=== PATIENT | female | born 1935 | race Caucasian/White ===

== ENCOUNTER 2021-11-16 06:39 | Inpatient (IN) | payer MEDICARE ==
[2021-11-16 12:40] VITALS: BMI 41.1
[2021-11-16] MEDS ORDERED: Guaifenesin DM 100-10/5 ML UDCUP PO PRN (18:12)
[2021-11-16] MEDS ORDERED: Ondansetron PF 4 MG/2 ML Vial IVP PRN (18:12)
[2021-11-16] MEDS ORDERED: Senokot S 8.6-50 MG TAB PO PRN (18:12)
[2021-11-16] MEDS ORDERED: Bisacodyl 5 MG TAB PO PRN (18:12)
[2021-11-16] MEDS ORDERED: Enoxaparin Sodium 40 MG/0.4 ML SYRINGE SC SCH (18:15)
[2021-11-16] MEDS ORDERED: Benzonatate 100 MG CAP PO PRN (18:19)
[2021-11-16] MEDS ORDERED: hydrALAZINE 20 MG/ML VIAL SLOW IVP PRN (18:19)
[2021-11-16] MEDS ORDERED: Losartan/Hydrochlorothiazide 100 mg/25 mg Tablet PO SCH (18:45)
[2021-11-16] MEDS ORDERED: Amlodipine 5 MG TAB PO SCH (18:45)
[2021-11-16] MEDS ORDERED: cloNIDine 0.3 MG TAB PO SCH (18:45)
[2021-11-17] MEDS: cefTRIAXone\\ROCEPHIN 2 GM in Sodium Chloride 0.9% 100 ML IVPB SCH (03:46)
[2021-11-17] MEDS: Azithromycin 500 MG in Sodium Chloride 0.9% 250 ML 250 ML IVPB SCH (03:51)
[2021-11-17 05:14] LABS: #Lymphocytes 1.4 thou/uL (1.20-3.40); #Neutrophils 11.3 thou/uL (1.40-6.50); %Basophils 0.1 % (0.0-1.0); %Eosinophils 0.1 % (0.0-10.0); %Lymphocytes 10.2 % (21.0-51.0); %Monocytes 7.5 % (0.0-10.0); %Neutrophils 82.2 % (42.0-75.0); Hemoglobin 11.9 g/dL (12.0-16.0); Mean Corpuscular HGB CONC 33.3 g/dL (32.0-36.0); Mean Corpuscular Hemoglobin 32.5 pg (27.0-31.0); Mean Corpuscular Volume 97.7 fL (78.0-98.0); Mean Platelet Volume 6.7 fL (7.4-10.4); Platelet Count 271 thou/uL (130-400); RBC Distribution Width 12.3 % (11.5-14.5); Red Blood Cell (RBC) Count 3.65 mill/uL (4.20-5.40); White Blood Cell (WBC) Count 13.8 thou/uL (4.8-10.8)
[2021-11-17 05:19] LABS: Hemoglobin A1c 5.9 % (4.0-6.0)
[2021-11-17 05:21] LABS: Lactic Acid 2.4 mmol/L (0.5-2.2)
[2021-11-17 05:34] LABS: ALT (SGPT) Less than 7 U/L (8-55); AST (SGOT) 8 U/L (5-34); Albumin 3.3 g/dL (3.4-4.8); Alkaline Phosphatase 88 U/L (40-110); Anion Gap 16 mmol/L (10-20); BUN (Urea Nitrogen) 16 mg/dL (9.8-20.1); Bilirubin, Total Less than 0.2 mg/dL (0.2-1.2); Calc. Creatinine Clearance 101 mL/min (70-130); Calcium 9.6 mg/dL (7.8-10.44); Carbon Dioxide 29 mmol/L (23-31); Chloride 100 mmol/L (98-107); Globulin 3.9 g/dL (2.4-3.5); Glucose 148 mg/dL (83-110); Potassium 3.6 mmol/L (3.5-5.1); Protein, Total 7.2 g/dL (5.8-8.1); Sodium 141 mmol/L (136-145)
[2021-11-17] MEDS: Amlodipine 5 MG TAB PO SCH (08:27)
[2021-11-17] MEDS: Enoxaparin Sodium 40 MG/0.4 ML SYRINGE SC SCH (08:27)
[2021-11-17] MEDS: Losartan/Hydrochlorothiazide 100 mg/25 mg Tablet PO SCH (08:27)
[2021-11-17] MEDS ORDERED: cloNIDine 0.3 MG TAB PO SCH (09:00)
[2021-11-17] MEDS ORDERED: cloNIDine 0.1 MG TAB PO PRN (11:42)
[2021-11-17 14:18] LABS: Legionella Urinary Ag Negative (Negative); Strep pneumo Urine Ag NEGATIVE (NEGATIVE)
[2021-11-17] MEDS: guaiFENesin ER 600 MG TAB PO SCH (20:23)
[2021-11-17] MEDS: Saccharomyces boulardii 250 MG CAP PO SCH (20:23)
[2021-11-17] MEDS: Acetaminophen 325 MG TAB PO PRN (23:16)
[2021-11-18] MEDS: cefTRIAXone\\ROCEPHIN 2 GM in Sodium Chloride 0.9% 100 ML IVPB SCH (03:31)
[2021-11-18] MEDS: Azithromycin 500 MG in Sodium Chloride 0.9% 250 ML 250 ML IVPB SCH (03:34)
[2021-11-18 06:47] LABS: #Eosinphils 0.2 thou/uL (0.0-0.7); #Lymphocytes 2.1 thou/uL (1.20-3.40); #Monocytes 0.9 thou/uL (0.11-0.59); #Neutrophils 7.9 thou/uL (1.40-6.50); %Basophils 0.1 % (0.0-1.0); %Eosinophils 1.4 % (0.0-10.0); %Lymphocytes 18.6 % (21.0-51.0); %Monocytes 8.5 % (0.0-10.0); %Neutrophils 71.4 % (42.0-75.0); Hemoglobin 12.9 g/dL (12.0-16.0); Mean Corpuscular HGB CONC 30.8 g/dL (32.0-36.0); Mean Corpuscular Hemoglobin 29.7 pg (27.0-31.0); Mean Corpuscular Volume 96.3 fL (78.0-98.0); Platelet Count 286 thou/uL (130-400); RBC Distribution Width 12.4 % (11.5-14.5); Red Blood Cell (RBC) Count 4.34 mill/uL (4.20-5.40)
[2021-11-18 06:59] LABS: Lactic Acid 1.7 mmol/L (0.5-2.2)
[2021-11-18 07:04] LABS: ALT (SGPT) 7 U/L (8-55); AST (SGOT) 9 U/L (5-34); Albumin 3.4 g/dL (3.4-4.8); Alkaline Phosphatase 92 U/L (40-110); Anion Gap 13 mmol/L (10-20); BUN (Urea Nitrogen) 17 mg/dL (9.8-20.1); Bilirubin, Total 0.2 mg/dL (0.2-1.2); Calc. Creatinine Clearance 104 mL/min (70-130); Calcium 9.5 mg/dL (7.8-10.44); Carbon Dioxide 35 mmol/L (23-31); Chloride 96 mmol/L (98-107); Globulin 3.8 g/dL (2.4-3.5); Glucose 105 mg/dL (83-110); Magnesium 1.8 mg/dL (1.6-2.6); Phosphorus 3.7 mg/dL (2.3-4.7); Potassium 3.6 mmol/L (3.5-5.1); Protein, Total 7.2 g/dL (5.8-8.1); Sodium 140 mmol/L (136-145)
[2021-11-18] MEDS: guaiFENesin ER 600 MG TAB PO SCH ×2 (08:52→20:16)
[2021-11-18] MEDS: Losartan/Hydrochlorothiazide 100 mg/25 mg Tablet PO SCH (08:52)
[2021-11-18] MEDS: Enoxaparin Sodium 40 MG/0.4 ML SYRINGE SC SCH (08:53)
[2021-11-18] MEDS: Amlodipine 5 MG TAB PO SCH (08:53)
[2021-11-18] MEDS: Acetaminophen 325 MG TAB PO PRN ×2 (10:15→20:16)
[2021-11-18] MEDS: Saccharomyces boulardii 250 MG CAP PO SCH (20:16)
[2021-11-18] MEDS: cloNIDine 0.3 MG TAB PO SCH (20:16)
[2021-11-18] MEDS: Melatonin 3 MG TAB PO PRN (21:10)
[2021-11-18] MEDS ORDERED: Magnesium 2 GM/50 ML 2 GM in Premix Bag 1 BAG IVPB SCH (23:45)
[2021-11-19] MEDS: cefTRIAXone\\ROCEPHIN 2 GM in Sodium Chloride 0.9% 100 ML IVPB SCH (03:03)
[2021-11-19] MEDS: Azithromycin 500 MG in Sodium Chloride 0.9% 250 ML 250 ML IVPB SCH (04:31)
[2021-11-19 06:02] LABS: #Eosinphils 0.2 thou/uL (0.0-0.7); #Lymphocytes 1.9 thou/uL (1.20-3.40); #Monocytes 0.7 thou/uL (0.11-0.59); #Neutrophils 5.5 thou/uL (1.40-6.50); %Basophils 0.1 % (0.0-1.0); %Eosinophils 2.4 % (0.0-10.0); %Lymphocytes 23.4 % (21.0-51.0); %Neutrophils 66.2 % (42.0-75.0); Hemoglobin 12.6 g/dL (12.0-16.0); Mean Corpuscular HGB CONC 31.5 g/dL (32.0-36.0); Mean Corpuscular Hemoglobin 30.5 pg (27.0-31.0); Mean Corpuscular Volume 96.9 fL (78.0-98.0); Mean Platelet Volume 6.7 fL (7.4-10.4); Platelet Count 276 thou/uL (130-400); RBC Distribution Width 12.3 % (11.5-14.5); Red Blood Cell (RBC) Count 4.12 mill/uL (4.20-5.40); White Blood Cell (WBC) Count 8.3 thou/uL (4.8-10.8)
[2021-11-19 06:21] LABS: Anion Gap 12 mmol/L (10-20); BUN (Urea Nitrogen) 13 mg/dL (9.8-20.1); Calc. Creatinine Clearance 116 mL/min (70-130); Calcium 9.4 mg/dL (7.8-10.44); Carbon Dioxide 33 mmol/L (23-31); Chloride 96 mmol/L (98-107); Glucose 118 mg/dL (83-110); Potassium 3.4 mmol/L (3.5-5.1); Sodium 138 mmol/L (136-145)
[2021-11-19] MEDS: Losartan/Hydrochlorothiazide 100 mg/25 mg Tablet PO SCH (07:41)
[2021-11-19] MEDS: guaiFENesin ER 600 MG TAB PO SCH ×2 (07:41→21:07)
[2021-11-19] MEDS: Enoxaparin Sodium 40 MG/0.4 ML SYRINGE SC SCH (07:41)
[2021-11-19] MEDS: Amlodipine 5 MG TAB PO SCH (07:41)
[2021-11-19] MEDS ORDERED: Potassium Chloride 20 MEQ TAB PO SCH (08:00)
[2021-11-19] MEDS: Acetaminophen 325 MG TAB PO PRN ×2 (16:43→21:05)
[2021-11-19] MEDS: cloNIDine 0.3 MG TAB PO SCH (21:03)
[2021-11-19] MEDS: Melatonin 3 MG TAB PO PRN (21:05)
[2021-11-19] MEDS: Saccharomyces boulardii 250 MG CAP PO SCH (21:06)
[2021-11-20] MEDS: cefTRIAXone\\ROCEPHIN 2 GM in Sodium Chloride 0.9% 100 ML IVPB SCH (04:00)
[2021-11-20] MEDS: Azithromycin 500 MG in Sodium Chloride 0.9% 250 ML 250 ML IVPB SCH (04:35)
[2021-11-20 06:33] LABS: #Eosinphils 0.3 thou/uL (0.0-0.7); #Lymphocytes 2.3 thou/uL (1.20-3.40); #Monocytes 0.6 thou/uL (0.11-0.59); #Neutrophils 6.2 thou/uL (1.40-6.50); %Basophils 0.3 % (0.0-1.0); %Eosinophils 3.4 % (0.0-10.0); %Monocytes 6.7 % (0.0-10.0); %Neutrophils 65.6 % (42.0-75.0); Mean Corpuscular HGB CONC 31.3 g/dL (32.0-36.0); Mean Corpuscular Hemoglobin 30.8 pg (27.0-31.0); Mean Corpuscular Volume 98.3 fL (78.0-98.0); Mean Platelet Volume 6.8 fL (7.4-10.4); Platelet Count 279 thou/uL (130-400); RBC Distribution Width 12.4 % (11.5-14.5); Red Blood Cell (RBC) Count 4.24 mill/uL (4.20-5.40); White Blood Cell (WBC) Count 9.5 thou/uL (4.8-10.8)
[2021-11-20 06:51] LABS: Anion Gap 15 mmol/L (10-20); BUN (Urea Nitrogen) 16 mg/dL (9.8-20.1); Calc. Creatinine Clearance 107 mL/min (70-130); Calcium 9.4 mg/dL (7.8-10.44); Carbon Dioxide 30 mmol/L (23-31); Chloride 98 mmol/L (98-107); Glucose 115 mg/dL (83-110); Phosphorus 3.5 mg/dL (2.3-4.7); Sodium 139 mmol/L (136-145)
[2021-11-20 07:00] VITALS: TEMP 97.7
[2021-11-20] MEDS: Losartan/Hydrochlorothiazide 100 mg/25 mg Tablet PO SCH (07:43)
[2021-11-20] MEDS: Amlodipine 5 MG TAB PO SCH (07:43)
[2021-11-20] MEDS: guaiFENesin ER 600 MG TAB PO SCH (07:44)
[2021-11-20] MEDS: Enoxaparin Sodium 40 MG/0.4 ML SYRINGE SC SCH (07:44)
[2021-11-20 09:08] VITALS: BP 126/75
[2021-11-20] MEDS: Acetaminophen 325 MG TAB PO PRN (09:10)
== END 2021-11-20 14:18 | disposition home or self-care (01) | DRG 193 ==
LOC: T4-B 06:39 → INTOOBSV 18:22 → OBSVTOIN 18:22
PROVIDERS: ADMIT Student in an Organized Health Care Education/Training Program; ATTEND Family Medicine
DX: J18.9 Pneumonia, unspecified organism (principal); J96.01 Acute respiratory failure with hypoxia; I50.32 Chronic diastolic (congestive) heart failure; Z68.41 Body mass index [BMI] 40.0-44.9, adult; I28.1 Aneurysm of pulmonary artery; E66.01 Morbid (severe) obesity due to excess calories; I11.0 Hypertensive heart disease with heart failure; M19.90 Unspecified osteoarthritis, unspecified site; R73.9 Hyperglycemia, unspecified; E83.42 Hypomagnesemia; Z79.899 Other long term (current) drug therapy
CPT/HCPCS: 36415; 36416; 51798; 80048; 80053; 83036; 83605; 83735; 84100; 84145; 85025; 87449; 87899; 93306; 94640; 96372; 96374; 96375; 96376; G0378; J0360; J0456; J0696; J1650; J3475; J3490; J7050; J7620

== ENCOUNTER 2024-03-11 11:29 | Emergency (ER) | payer MEDICARE ==
[2024-03-11] MEDS ORDERED: HYDROcodone/Acetaminophen 5/325 mg Tablet ONE (12:22)
== END 2024-03-11 15:40 | disposition home or self-care (01) ==
LOC: ERS 11:29
DX: S76.911A Strain of unspecified muscles, fascia and tendons at thigh level, right thigh, initial encounter (principal); I10 Essential (primary) hypertension; X50.0XXA Overexertion from strenuous movement or load, initial encounter; Y93.89 Activity, other specified
CPT/HCPCS: 72170

== ENCOUNTER 2025-07-30 15:01 | Emergency (ER) | payer OTHER | END 2025-07-30 18:57 | disposition home or self-care (01) | LOC: ERS 15:01 | DX: R60.0 Localized edema (principal); I10 Essential (primary) hypertension; Z76.0 Encounter for issue of repeat prescription; Z79.82 Long term (current) use of aspirin; Z79.02 Long term (current) use of antithrombotics/antiplatelets; Z79.899 Other long term (current) drug therapy | CPT/HCPCS: 93970 ==

== ENCOUNTER 2025-08-12 18:09 | Inpatient (IN) | payer OTHER ==
[2025-08-12 21:28] VITALS: BMI 42.0
[2025-08-12] MEDS: predniSONE 20 MG TAB PO SCH (22:49)
[2025-08-12] MEDS: Enoxaparin 40 MG (0.4 mL) SYRINGE SC SCH (22:50)
[2025-08-12 22:52] LABS: Actual Bicarbonate (HCO3a) 35.5 mEq/L (22-28); Base Excess (BEa) 9.4 mEq/L (-2.0 to +3.0); CO2 Tension 55.2 mmHg (35.0-45.0); Calcium, Ionized (arterial) 1.16 mmol/L (1.12-1.30); Hematocrit-ABG 36 % (36.0-47.0); Hemoglobin (Hb) 12.2 g/dL (12.0-16.0); O2 Tension (PaO2), arterial 77.6 mmHg (> 60.0); Potassium - ABG Lab 4.75 mmol/L (3.70-5.30); pH, Arterial 7.426 (7.35-7.45)
[2025-08-12 22:55] LABS: Puncture Site Right Radial artery
[2025-08-13 04:41] LABS: #Basophils Less than 0.03 10x3/uL (0.0-0.2); #Eosinophils Less than 0.03 10x3/uL (0.0-0.7); #Monocytes 0.05 10x3/uL (0.11-0.59); #Neutrophils 4.64 10x3/uL (1.40-6.50); %Basophils 0.2 % (0.0-1.0); %Eosinophils 0.0 % (0.0-10.0); %Lymphocytes 11.0 % (21.0-51.0); %Monocytes 0.9 % (0.0-10.0); %Neutrophils 87.7 % (42.0-75.0); Hematocrit 38.4 % (36.0-47.0); Hemoglobin 11.8 g/dL (12.0-16.0); Mean Corpuscular Hemoglobin 29.4 pg (27.0-31.0); Mean Corpuscular Volume 95.5 fL (78.0-98.0); Platelet Count 377 10x3/uL (130-400); Red Blood Cell (RBC) Count 4.02 mill/uL (4.20-5.40); White Blood Cell (WBC) Count 5.29 10x3/uL (4.8-10.8)
[2025-08-13 05:08] LABS: ALT (SGPT) 7 U/L (Less than 34); AST (SGOT) 12 U/L (11-34); Albumin 2.9 g/dL (3.1-4.5); Alkaline Phosphatase 110 U/L (40-110); Anion Gap 16 mmol/L (10-20); BUN (Urea Nitrogen) 13 mg/dL (9.8-20.1); Bilirubin, Total 0.1 mg/dL (0.3-1.2); Calc. Creatinine Clearance 103 mL/min (70-130); Calcium 9.6 mg/dL (7.8-10.44); Carbon Dioxide 34 mmol/L (23-31); Cardiac Risk 5.0 (Less than 4.5); Chloride 97 mmol/L (98-107); Cholesterol 169 mg/dl (< 200 Desired); Globulin 4.3 g/dL (2.4-3.5); Glucose 152 mg/dL (83-110); HDL Cholesterol 34 mg/dL (>60 Neg Risk); LDL Cholesterol, Calculated 109 mg/dL; Potassium 4.8 mmol/L (3.5-5.1); Sodium 142 mmol/L (136-145); Triglycerides 128 mg/dL (Less than 150)
[2025-08-13] MEDS: predniSONE 20 MG TAB PO SCH (08:11)
[2025-08-13] MEDS: Enoxaparin 40 MG (0.4 mL) SYRINGE SC SCH (08:11)
[2025-08-13] MEDS: Pantoprazole 40 MG DR.TAB PO SCH (08:13)
[2025-08-13] MEDS: Losartan 25 MG TAB PO SCH ×2 (08:14→20:54)
[2025-08-13] MEDS: Aspirin 81 mg Enteric Coated Tablet PO SCH (08:14)
[2025-08-13] MEDS: Furosemide 20 MG (2 mL) VIAL SLOW IVP SCH (13:01)
[2025-08-13] MEDS: Carvedilol 6.25 MG TAB PO SCH (16:52)
[2025-08-13] MEDS: PNEUMOC 20-VAL CONJ-DIP CRM/PF 0.5 ML SYRINGE IM ONE (16:54)
[2025-08-14 05:23] LABS: Anion Gap 13 mmol/L (10-20); BUN (Urea Nitrogen) 27 mg/dL (9.8-20.1); Calc. Creatinine Clearance 80 mL/min (70-130); Calcium 9.5 mg/dL (7.8-10.44); Carbon Dioxide 35 mmol/L (23-31); Chloride 95 mmol/L (98-107); Glucose 142 mg/dL (83-110); Magnesium 2.0 mg/dL (1.6-2.6); Potassium 5.1 mmol/L (3.5-5.1); Sodium 138 mmol/L (136-145)
[2025-08-14] MEDS: predniSONE 20 MG TAB PO SCH (10:04)
[2025-08-14] MEDS: Furosemide 40 MG TAB PO SCH (10:07)
[2025-08-14] MEDS: Losartan 25 MG TAB PO SCH ×2 (11:16→21:01)
[2025-08-14] MEDS: Carvedilol 6.25 MG TAB PO SCH ×2 (11:16→16:09)
[2025-08-15 11:48] VITALS: TEMP 97.6
[2025-08-15 15:34] VITALS: BP 176/77
== END 2025-08-15 16:30 | disposition home or self-care (01) | DRG 280 ==
LOC: 2NO 20:28 → OBSVTOIN 22:02
PROVIDERS: ADMIT Internal Medicine; ATTEND Internal Medicine
PROC: 4A033R1 Measurement of Arterial Saturation, Peripheral, Percutaneous Approach (ICD-10-PCS; principal; 2025-08-12)
DX: I11.0 Hypertensive heart disease with heart failure (principal); I50.33 Acute on chronic diastolic (congestive) heart failure; I21.A1 Myocardial infarction type 2; J96.01 Acute respiratory failure with hypoxia; J44.1 Chronic obstructive pulmonary disease with (acute) exacerbation; J45.901 Unspecified asthma with (acute) exacerbation; Z68.41 Body mass index [BMI] 40.0-44.9, adult; F17.210 Nicotine dependence, cigarettes, uncomplicated; E66.01 Morbid (severe) obesity due to excess calories; I71.43 Infrarenal abdominal aortic aneurysm, without rupture; I27.21 Secondary pulmonary arterial hypertension; R30.0 Dysuria
CPT/HCPCS: 36415; 36600; 80048; 80053; 80061; 82805; 83036; 83735; 83880; 84443; 84484; 85025; 93005; 93010; 93306; 94640; J1650; J1940; J7512; J7626